=== PATIENT | female | born 1955 | race Caucasian/White ===

== ENCOUNTER 2021-05-03 05:55 | Day surgery (SDC) | payer MEDICARE | END 2021-05-03 09:30 | disposition home or self-care (01) | LOC: ATC 05:55 | DX: E05.00 Thyrotoxicosis with diffuse goiter without thyrotoxic crisis or storm (principal) | CPT/HCPCS: J2930 ==

== ENCOUNTER 2021-05-10 00:40 | Day surgery (SDC) | payer MEDICARE ==
--- NOTE | 2021-05-10 08:50 | NUR ---
LABS DRAWN FROM IV START PER PROTOCOL
[2021-05-10 09:30] LABS: Anion Gap 8 mmol/L (6-16); Blood Urea Nitrogen 22 mg/dL (8-24); CO2, Blood 23 mmol/L (21-32); Calcium, Blood 8.9 mg/dL (8.5-10.1); Chloride, Blood 110 mmol/L (98-108); Creatinine, Blood 0.82 mg/dL (0.40-1.00); Glomerular Filtration Rate >60 (60-); Glucose, Blood 118 mg/dL (70-99); Potassium, Blood 3.6 mmol/L (3.5-5.5); Sodium, Blood 141 mmol/L (136-145)
== END 2021-05-10 09:30 | disposition home or self-care (01) ==
LOC: ATC 00:40
PROVIDERS: Ophthalmology
DX: E05.00 Thyrotoxicosis with diffuse goiter without thyrotoxic crisis or storm (principal)
CPT/HCPCS: 80048; J2930

== ENCOUNTER 2021-05-17 04:11 | Day surgery (SDC) | payer MEDICARE ==
[2021-05-17 14:49] LABS: Anion Gap 7 mmol/L (6-16); Blood Urea Nitrogen 17 mg/dL (8-24); Bun/Creatinine Ratio 20.8 (12.0-20.0); CO2, Blood 24 mmol/L (21-32); Calcium, Blood 9.2 mg/dL (8.5-10.1); Chloride, Blood 110 mmol/L (98-108); Creatinine, Blood 0.82 mg/dL (0.40-1.00); Glomerular Filtration Rate >60 (60-); Glucose, Blood 98 mg/dL (70-99); Potassium, Blood 4.3 mmol/L (3.5-5.5); Sodium, Blood 141 mmol/L (136-145)
== END 2021-05-17 16:00 | disposition home or self-care (01) ==
LOC: ATC 04:11
PROVIDERS: Ophthalmology
DX: E05.00 Thyrotoxicosis with diffuse goiter without thyrotoxic crisis or storm (principal)
CPT/HCPCS: 80048; J2930

== ENCOUNTER 2021-06-14 05:41 | Day surgery (SDC) | payer MEDICARE ==
[2021-06-14 10:25] LABS: Alanine Aminotransfer (ALT/SGP 22 U/L (12-78); Albumin, Blood 3.8 g/dL (3.4-5.0); Albumin/Globulin Ratio 1.6 (0.8-1.8); Alk Phos 94 U/L (50-136); Anion Gap 9 mmol/L (6-16); Aspartate Aminotrans (AST/SGOT 14 U/L (12-37); Blood Urea Nitrogen 15 mg/dL (8-24); Bun/Creatinine Ratio 16.5 (12.0-20.0); CO2, Blood 25 mmol/L (21-32); Calcium, Blood 8.5 mg/dL (8.5-10.1); Chloride, Blood 106 mmol/L (98-108); Creatinine, Blood 0.91 mg/dL (0.40-1.00); Globulin, Blood 2.4 g/dL (2.2-4.0); Glomerular Filtration Rate >60 (60-); Glucose, Blood 152 mg/dL (70-99); Potassium, Blood 3.9 mmol/L (3.5-5.5); Sodium, Blood 140 mmol/L (136-145); Total Protein, Blood 6.2 g/dL (6.4-8.2)
== END 2021-06-14 11:45 | disposition home or self-care (01) ==
LOC: ATC 05:41
PROVIDERS: Ophthalmology
DX: E05.00 Thyrotoxicosis with diffuse goiter without thyrotoxic crisis or storm (principal)
CPT/HCPCS: 80053; 96365; J2930

== ENCOUNTER 2021-06-28 00:40 | Day surgery (SDC) | payer MEDICARE ==
[~2021-06-28 00:40] MED LIST: Cellcept500 MG PO; ESTRADIOL1 M1 PO; LORAZEPAM0.5 MG PO; METHI10 PO; METHIMAZOLE5 M2 PO; NEOPOLDEXO BOTHEYES; PROG100 PO
[2021-06-28 09:17] LABS: Anion Gap 5 mmol/L (6-16); Blood Urea Nitrogen 16 mg/dL (8-24); Bun/Creatinine Ratio 18.2 (12.0-20.0); CO2, Blood 26 mmol/L (21-32); Calcium, Blood 9.6 mg/dL (8.5-10.1); Chloride, Blood 109 mmol/L (98-108); Creatinine, Blood 0.88 mg/dL (0.40-1.00); Glomerular Filtration Rate >60 (60-); Glucose, Blood 111 mg/dL (70-99); Potassium, Blood 4.8 mmol/L (3.5-5.5); Sodium, Blood 140 mmol/L (136-145)
== END 2021-06-28 10:15 | disposition home or self-care (01) ==
LOC: ATC 00:40
PROVIDERS: Ophthalmology
DX: E05.00 Thyrotoxicosis with diffuse goiter without thyrotoxic crisis or storm (principal); Z85.820 Personal history of malignant melanoma of skin
CPT/HCPCS: 80048; J2930

== ENCOUNTER 2021-07-05 05:09 | Day surgery (SDC) | payer MEDICARE ==
[2021-07-05 09:36] LABS: Anion Gap 6 mmol/L (6-16); Blood Urea Nitrogen 12 mg/dL (8-24); Bun/Creatinine Ratio 12.9 (12.0-20.0); CO2, Blood 24 mmol/L (21-32); Calcium, Blood 8.9 mg/dL (8.5-10.1); Chloride, Blood 108 mmol/L (98-108); Creatinine, Blood 0.93 mg/dL (0.40-1.00); Glomerular Filtration Rate >60 (60-); Glucose, Blood 106 mg/dL (70-99); Potassium, Blood 4.3 mmol/L (3.5-5.5); Sodium, Blood 138 mmol/L (136-145)
== END 2021-07-05 10:10 | disposition home or self-care (01) ==
LOC: ATC 05:09
PROVIDERS: Ophthalmology
DX: E05.00 Thyrotoxicosis with diffuse goiter without thyrotoxic crisis or storm (principal)
CPT/HCPCS: 80048; J2930

== ENCOUNTER 2021-07-11 01:51 | Day surgery (SDC) | payer MEDICARE ==
[2021-07-11 09:40] LABS: Anion Gap 7 mmol/L (6-16); Blood Urea Nitrogen 9 mg/dL (8-24); Bun/Creatinine Ratio 10.4 (12.0-20.0); CO2, Blood 22 mmol/L (21-32); Chloride, Blood 110 mmol/L (98-108); Creatinine, Blood 0.86 mg/dL (0.40-1.00); Glomerular Filtration Rate >60 (60-); Glucose, Blood 120 mg/dL (70-99); Sodium, Blood 139 mmol/L (136-145)
== END 2021-07-11 10:56 | disposition home or self-care (01) ==
LOC: ATC 01:51
PROVIDERS: Ophthalmology
DX: E05.00 Thyrotoxicosis with diffuse goiter without thyrotoxic crisis or storm (principal)
CPT/HCPCS: 80048; J2930

== ENCOUNTER 2021-07-18 01:50 | Day surgery (SDC) | payer MEDICARE ==
[2021-07-18 10:31] LABS: Anion Gap 7 mmol/L (6-16); Blood Urea Nitrogen 12 mg/dL (8-24); Bun/Creatinine Ratio 16.8 (12.0-20.0); CO2, Blood 25 mmol/L (21-32); Calcium, Blood 8.9 mg/dL (8.5-10.1); Chloride, Blood 109 mmol/L (98-108); Creatinine, Blood 0.71 mg/dL (0.40-1.00); Glomerular Filtration Rate >60 (60-); Glucose, Blood 104 mg/dL (70-99); Sodium, Blood 141 mmol/L (136-145)
== END 2021-07-18 11:45 | disposition home or self-care (01) ==
LOC: ATC 01:50
PROVIDERS: Ophthalmology
DX: E05.00 Thyrotoxicosis with diffuse goiter without thyrotoxic crisis or storm (principal)
CPT/HCPCS: 80048; J2930

== ENCOUNTER 2022-05-31 07:14 | Day surgery (SDC) | payer MEDICARE ==
[~2022-05-31] VITALS: Ht 167.6 cm; Wt 72.9 kg
--- NOTE | 2022-05-31 08:00 | NUR ---
05/31/22 0800 Sophia Joshi IN AT 0747 BAN IN AT 0750
--- NOTE | 2022-05-31 08:39 | NUR ---
05/31/22 0839 Margaret Faye PT BROUGHT INTO OR ROOM. DR GONZALEZ CANCELED CASE D/T ABNORMAL PRESSURE/TIGHNESS IN EYE. DR GONZALEZ EXPLAINED TO THIS TO PT. PT STATES AN UNDERSTANDING AREA AGREES. PT BROUGHT OUT TO STEP DOWN & REPORT GIVEN TO STEP DOWN NURSE.
--- NOTE | 2022-05-31 09:09 | NUR ---
05/31/22 0909 [facility]ANCELLED BY DR GONZALEZ WHILE PATIENT IN OR DUE TO HIGH INTRAOCULAR PRESSURE. PER CIRCULATING NURSE AND DR KIMBLE, PATIENT DID NOT RECIEVE ANY SEDATING MEDICATION AND IS OKAY TO GO HOME. PATIENT INSTRUCTED TO CALL DR GONZALEZ'S OFFICE LATER TODAY OR TOMORROW MORNING TO FOLLOW UP. VITAL SIGNS RECORDED IN STEPDOWN AND IV REMOVED. PATIENT REPORTED NO PAIN AND STATED READINESS TO GO HOME, SUPPLIED WITH SPECIAL SUNGLASSES AND INSTRUCTED TO WEAR TODAY AND TOMORROW BECAUSE HER EYES WERE DILATED AT THE [facility]. TRANSPORTED PATIENT HOME.
== END 2022-05-31 09:00 | disposition home or self-care (01) ==
LOC: ORSCSDS 07:14
PROVIDERS: Ophthalmology
PROC: 08RJ3JZ Replacement of Right Lens with Synthetic Substitute, Percutaneous Approach (ICD-10-PCS; principal; 2022-05-31 08:30)
DX: H25.11 Age-related nuclear cataract, right eye (principal); Z53.09 Procedure and treatment not carried out because of other contraindication; E03.9 Hypothyroidism, unspecified; Z79.899 Other long term (current) drug therapy; Z87.891 Personal history of nicotine dependence
CPT/HCPCS: J2001; J2250; J3010; J3301; J7040

== ENCOUNTER 2022-07-12 07:30 | Day surgery (SDC) | payer MEDICARE ==
[~2022-07-12] VITALS: Ht 167.6 cm; Wt 74.9 kg
--- NOTE | 2022-07-12 07:54 | NUR ---
07/12/22 0754 LATOSHA DEMPSEY T: [id number] P:[id number] CALL LIGHT WITHIN REACH, PT READY FOR OR.
== END 2022-07-12 10:25 | disposition home or self-care (01) ==
LOC: ORSCSDS 07:30
PROVIDERS: Ophthalmology
PROC: 08RJ3JZ Replacement of Right Lens with Synthetic Substitute, Percutaneous Approach (ICD-10-PCS; principal; 2022-07-12 09:30)
DX: H25.11 Age-related nuclear cataract, right eye (principal); H25.13 Age-related nuclear cataract, bilateral; H57.89 Other specified disorders of eye and adnexa; E07.9 Disorder of thyroid, unspecified; Z79.899 Other long term (current) drug therapy
CPT/HCPCS: A9270; J2001; J2150; J2250; J3010; J3301; J7040; V2632